=== PATIENT | female | born 1975 | race Two or more races ===

== ENCOUNTER 2022-10-10 09:01 | Inpatient (IN) | payer OTHER ==
[~2022-10-10] VITALS: Ht 162.6 cm; Wt 81.2 kg
[2022-10-10] MEDS ORDERED: SYNTHROID50 MCG PO (10:32)
== END 2022-10-15 12:54 | disposition home or self-care (01) | DRG 743 ==
LOC: OB/GYN 10-12 07:00 → O/R 10-12 09:39 → OB/GYN 10-12 19:30
PROVIDERS: ADMIT Obstetrics & Gynecology; ATTEND Obstetrics & Gynecology
PROC: 0UT70ZZ Resection of Bilateral Fallopian Tubes, Open Approach (ICD-10-PCS; 2022-10-12)
PROC: 0DNW0ZZ Release Peritoneum, Open Approach (ICD-10-PCS; 2022-10-12)
PROC: 0UT90ZZ Resection of Uterus, Open Approach (ICD-10-PCS; principal; 2022-10-12 07:00)
DX: D25.1 Intramural leiomyoma of uterus (principal); D25.0 Submucous leiomyoma of uterus; N80.03 Adenomyosis of the uterus; N72 Inflammatory disease of cervix uteri; Z20.822 Contact with and (suspected) exposure to COVID-19; N73.6 Female pelvic peritoneal adhesions (postinfective)